=== PATIENT | female | born 1985 | race Caucasian/White ===

== ENCOUNTER 2017-11-11 01:22 | Emergency (ER) | payer MEDICAID ==
[~2017-11-11] VITALS: Ht 157.5 cm; Wt 61.2 kg
[2017-11-11 01:37] VITALS: BP 137/81
--- NOTE | 2017-11-11 02:24 | NUR ---
PT IN BED 1.
--- NOTE | 2017-11-11 02:45 | NUR ---
PT BIB FAMILY C/O CHEST PAIN RADIATING TO HER LEFT ARM, SHOULDER AND NECK STARTED AT 2300HOUR.PT DENIES N/V/D; SKIN IS INTACT, PINK/WARM/DRY; AAOX4, PERRL, WITH EVEN AND STEADY GAIT; LUNGS CLEAR BL, BREATHING UNLABORED; HR EVEN AND REGULAR, BL PERIPHERAL PULSES PRESENT; BS ACTIVE X4, NO TENDERNESS TO PALPATION. PT DENIES ANY FEVER, SOB, OR COUGH AT THIS TIME; PT STATES 3/10 PAIN AT THIS TIME; VSS; PATIENT POSITIONED FOR COMFORT; HOB ELEVATED; BEDRAILS UP X2; BED DOWN.
--- NOTE | 2017-11-11 03:02 | NUR ---
Patient appears to be resting comfortably in bed. Vital Signs within normal limits. Respirations even and unlabored.
[2017-11-11 05:14] VITALS: BP 125/80
== END 2017-11-11 05:14 | disposition home or self-care (01) ==
LOC: MED 01:22
DX: R07.89 Other chest pain (principal)
CPT/HCPCS: 93005; 99283